=== PATIENT | male | born 1980 | race Caucasian/White ===

== ENCOUNTER 2018-11-04 16:20 | Emergency (ER) | payer SELFPAY ==
[~2018-11-04] VITALS: Ht 182.8 cm; Wt 136.1 kg
== END 2018-11-04 17:39 | disposition home or self-care (01) ==
LOC: ED 16:20
DX: S90.01XA Contusion of right ankle, initial encounter (principal); W17.2XXA Fall into hole, initial encounter; Y93.01 Activity, walking, marching and hiking; Y92.89 Other specified places as the place of occurrence of the external cause; Y99.8 Other external cause status